=== PATIENT | female | born 1970 | race Caucasian/White ===

== ENCOUNTER 2017-11-15 11:04 | Emergency (ER) | payer SELFPAY ==
[~2017-11-15] VITALS: Ht 147.3 cm; Wt 71.0 kg
[2017-11-15 11:17] VITALS: BP 160/94
== END 2017-11-15 13:36 | disposition home or self-care (01) ==
LOC: ER 11:04
DX: J06.9 Acute upper respiratory infection, unspecified (principal); E11.9 Type 2 diabetes mellitus without complications; I10 Essential (primary) hypertension; Z90.49 Acquired absence of other specified parts of digestive tract
CPT/HCPCS: 71045; 81025; 99283